=== PATIENT | male | born 1985 | race African-American/Black ===

== ENCOUNTER 2019-06-06 19:14 | Emergency (ER) | payer MEDICAID ==
[~2019-06-06] VITALS: Ht 177.8 cm; Wt 210.0 kg
[2019-06-06] MEDS ORDERED: HYDROCODONE/ACETAMINOPHEN 5/325MG TABLET PO ONE (20:30)
[2019-06-06 21:20] VITALS: BP 171/114
== END 2019-06-06 21:30 | disposition home or self-care (01) ==
LOC: ER 20:06
DX: H60.91 Unspecified otitis externa, right ear (principal); R03.0 Elevated blood-pressure reading, without diagnosis of hypertension
CPT/HCPCS: 99283